=== PATIENT | male | born 1980 | race Asian ===

== ENCOUNTER 2022-04-29 15:49 | Outpatient (CLI) | payer OTHER ==
--- NOTE | 2022-04-29 17:42 | XRAY Report ---
PROCEDURE: Elbow 3 View BILAT INDICATIONS: BILATERAL ELBOW PAIN TECHNIQUE: 3 views of the elbow were acquired. COMPARISON: None FINDINGS: Bones: No fractures or dislocations. No suspicious bony lesions. Soft tissues: No elbow joint effusion. No suspicious soft tissue calcifications. IMPRESSION: Unremarkable exam. If concern persists, short interval imaging follow-up is recommended. Reviewed by: Talia Ramirez MD on 04/29/2022 5:41 PM PDT Approved by: Talia Ramirez MD on 04/29/2022 5:41 PM PDT Station ID: [id number]
== END 2022-04-29 15:50 | disposition home or self-care (01) ==
LOC: DI.S 15:49
PROVIDERS: ATTEND Nurse Practitioner Family
DX: M25.522 Pain in left elbow (principal); M25.521 Pain in right elbow